=== PATIENT | female | born 1970 | race Two or more races ===

== ENCOUNTER 2021-09-07 00:24 | Emergency (ER) | payer OTHER, SELFPAY ==
--- NOTE | ~2021-09-07 | XR_ITS ---
EXAMINATION: XR KNEE, RIGHT CLINICAL INFORMATION: Knee pain COMPARISON: None TECHNIQUE: Four views of the right knee. FINDINGS: No fracture or subluxation. Compartmental joint spaces are maintained. No joint effusion. The soft tissues are unremarkable. XR/XR knee RT 3V IMPRESSION: Normal right knee.
[2021-09-07 00:41] VITALS: BP 144/78; PULSE 63; RESP 16; TEMP 36.6; O2SAT 98; BMI 39.5
--- NOTE | 2021-09-07 01:12 | ED.LOWEXIN ---
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 Subsequently had pain to the right knee. Patient denies any systemic complaints. No calf swelling. No chest pain or shortness breath no dizziness. Pain worse with ambulation. Patient had meniscal injury years back. Requiring additional surgery. Worry about her knee. Related Data Allergies Allergy/AdvReac Type Severity Reaction Status Date / Time Influenza Virus Vaccines Allergy Unknown Verified 09/07/21 00:44 nitrofurantoin Allergy Unknown Verified 09/07/21 00:44 [From Macrobid] sulfamethoxazole Allergy Unknown Verified 09/07/21 00:44 [From Bactrim] trimethoprim [From Bactrim] Allergy Unknown Verified 09/07/21 00:44 Review of Systems Review of Systems: No fever no chills no chest pain or shortness breath no nausea no vomiting Yes all other systems are reviewed and are negative [facility] Past Medical History Attestation statement: The following information was validated with the patient. Social History Social History Advance Directives: No Physical Exam Vital Signs: Vital Signs: Last Vital Signs Temp 97.8 F 09/07/21 00:41 Pulse 63 09/07/21 00:41 Resp 16 09/07/21 00:41 BP 144/78 H 09/07/21 00:41 Pulse Ox 98 09/07/21 00:41 O2 Del Method 09/07/21 00:41 BMI result Body Mass Index 39.5 Appearance: Alert. Oriented X3. No acute distress. Eyes: Pupils equal, round and reactive to light. ENT: Pharynx normal. Neck: Normal inspection. Neck supple. No lymph nodes noted. No crepitus CVS: Normal heart rate and rhythm. Pulses normal. Normal S1 and S2 Respiratory: No respiratory distress. Breath sounds normal. No Wheezing. No rales Abdomen: Soft and nontender. No rigidity. No distention. good BS x4 Skin: Skin warm and dry. Normal skin color. Normal skin turgor. Extremities: No lower extremity edema. Neurovascular intact to all extremities. No Lacerations. No Rash. There is mild pain on the medial aspect of the knee. There is no patellar tenderness on palpation. There is no tenderness on palpation medial lateral collateral ligament. Range of motions slightly limited secondary to pain. Distally neurovascularly intact Neuro: Oriented X 3. No motor deficit. No sensory deficit. Moving all extermities. No slurred speech MDM - Extremity Injury (Lower) MDM Narrative Medical decision making narrative: Patient well appearing no distress. Will get x-ray to rule out the possibility fracture. Will have patient follow-up with Employee Health and also with orthopedics for further management. Patient wanted an MRI for further delineation of the injury. An MRI form was filled out for patient for outpatient MRI X-ray showed no acute fracture. Medical Records Attestation: I reviewed the patient's medical records. Lab Data Attestation: I reviewed the patient's lab results. Discharge Plan Discharge Clinical Impression: Acute internal derangement of knee Patient Disposition: Home, Self-Care Instructions: Knee Pain (ED) Referrals: [facility] [Provider Group] Roni Goddard MD [Physician] -
== END 2021-09-07 02:10 | disposition home or self-care (01) ==
PROVIDERS: Emergency Provider Emergency Medicine Emergency Medical Services; PCP Physician Assistant Medical
DX: M23.8X1 Other internal derangements of right knee (principal)
CPT/HCPCS: 73562; 99283

== ENCOUNTER → 2021-09-09 10:54 | Outpatient (BNVA) | payer OTHER, SELFPAY | PROVIDERS: PCP Physician Assistant Medical; Visit Provider Physician Assistant Medical | DX: Z13.89 Encounter for screening for other disorder (principal) | CPT/HCPCS: 99204 ==

== ENCOUNTER → 2021-09-16 10:43 | Outpatient (BNVA) | payer OTHER, SELFPAY | PROVIDERS: PCP Physician Assistant Medical; Visit Provider Physician Assistant | DX: Z13.89 Encounter for screening for other disorder (principal) | CPT/HCPCS: 99213 ==

== ENCOUNTER 2021-09-23 14:00 | Outpatient (RCR) | payer OTHER, SELFPAY ==
--- NOTE | 2021-09-16 09:41 | MHC.PT.EP ---
[facility] [place] Office [place] Office [place] Office [address] Jalyn Schaffer [address] [phone] F: [phone] F: [phone] F: [phone] F: [phone] Physical Therapy Plan of Care Date of Evaluation: Date of Surgery: n/a Diagnosis: R knee pain Assessment: Patient is a 51 year old female presenting to PT with complaints of pain in her R knee. Pt reports onset of pain began 09/05/2021 due to lifting when transferring a pt. She presents today with impairments in pain, R knee ROM, knee strength, hip strength. 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 Clinical presentation today is most consistent with signs and sx associated with R knee pain and pt will benefit from skilled PT to address the following problems and impairments noted upon evaluation: pain, R knee ROM, knee strength, hip strength. These problems limit the patient with the following functional activities: ambulation, stair negotiation, work, squatting, ADLs. The prescribed treatment plan of care is medically necessary. Co-morbidities of HTN were identified and taken into considerations of plan of care. Pt was educated on HEP, role of PT, prognosis, POC. Frequency and Duration: The patient will be seen 2 x week x 4 weeks Short Term Goals: Pt will demonstrate full knee ROM on R to 125 in 2 weeks. Pt will demonstrate improved knee MMT strength to 5/5 in 2 weeks. Pt will demonstrate improved hip MMT by 1/3 grade in 2 weeks for improved lumbopelvic stability. Medical Coordinator Pesticide Use Goals: Pt will demonstrate improved LEFI score by 9 points in 4 weeks for improved functional mobility. 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 Pt will demonstrate ability to negotiate stairs with min to no pain in 4 weeks for return to PLOF. Treatment Plan: Modalities to reduce pain, spasms and effusion. Manual therapy to restore motion and function. Therapeutic exercise to improve strength and flexibility. Neuromuscular re-education for posture and balance. Therapeutic activities to return to functional activities of daily living. Electronically signed by: Lia Donald, PT, DPT, ATC Please sign and return to therapist. Thank you for your referral.
--- NOTE | 2021-11-03 10:34 | MHC.PT.DC ---
[facility] [place] Office [place] Office [place] Office [address] Jalyn Schaffer [address] [phone] F: [phone] F: [phone] F: [phone] F: [phone] Physical Therapy Discharge Report Diagnosis: R knee pain Date of Surgery: n/a Date of Evaluation: 09/16/21 Date of Discharge: 11/03/21 Treatments to Date: 3 Cancellations to Date: 1 No Shows to Date: 0 Discharge Status: Discharge Summary: Pt cancelled her last scheduled appointment. Pt has not reached out to be scheduled in >30 days. Pt to be d/c per our policy Electronically signed by: Lia Donald, PT, DPT, ATC Please sign and return to therapist. Thank you for your referral.
== END 2021-11-03 10:34 | disposition home or self-care (01) ==
LOC: HO.PTCHIC 14:00
PROVIDERS: PCP Physician Assistant Medical; Visit Provider Physician Assistant
DX: M25.561 Pain in right knee (principal)
CPT/HCPCS: 97110; 97140; 97161

== ENCOUNTER 2021-09-24 08:10 | Outpatient (REF) | payer OTHER, SELFPAY ==
--- NOTE | ~2021-09-24 | MR_ITS ---
EXAMINATION: MR KNEE WITHOUT CONTRAST, RIGHT CLINICAL INFORMATION: Lateral joint pain. Patient reports pain, history of torn medial meniscus. Patient reports no prior right knee surgery. COMPARISON: X-ray 09/07/2021. MRI 02/05/2020 TECHNIQUE: MRI of the knee without contrast was performed using routine sequences on a high-field scanner. FINDINGS: MENISCI: Medial Meniscus: Minimal focal undersurface and free edge fraying of the posterior root. Meniscus otherwise appears intact. Lateral Meniscus: Superior and undersurface degenerative fraying/tear of the posterior root/central posterior horn, involving a segment approximately 1.1 cm transverse. LIGAMENTS: Cruciate: Mild T2 signal in the ACL, which could reflect myxoid degeneration or sprain. PCL is intact. Collateral: Intact EXTENSOR MECHANISM: Intact ARTICULAR CARTILAGE/BONE: Patellofemoral Compartment: Focal subchondral edema in the lateral patellar facet. No focal cartilage loss. Medial Compartment: No significant cartilage loss. Degenerative edema underlying the tibial spines. Lateral Compartment: No significant cartilage loss. Redemonstrated is a lobulated heterogeneous intramedullary lesion in the femur measuring 2.1 x 1.4 x 2 cm. There are foci of internal fat. No surrounding marrow edema. Findings are consistent with a low-grade chondroid lesion such as enchondroma. JOINT FLUID AND BURSAE: Small effusion. No significant Leon's cyst. MR/MR knee RT wo con IMPRESSION: 1. Degenerative fraying/tear of the posterior root/central posterior horn of the lateral meniscus involving a segment approximately 1.1 cm transverse. 2. Mild fraying of the posterior root of the medial meniscus. 3. ACL findings could reflect myxoid degeneration or sprain. 4. Stable probable enchondroma in the distal femur. 5. Small effusion.
== END 2021-09-24 08:11 | disposition home or self-care (01) ==
LOC: HO.MRI 08:10
PROVIDERS: Visit Provider Physician Assistant
DX: M25.561 Pain in right knee (principal)
CPT/HCPCS: 73721

== ENCOUNTER → 2022-01-20 09:16 | Outpatient (BNVA) | payer OTHER, SELFPAY | PROVIDERS: PCP Physician Assistant Medical; Visit Provider Physician Assistant | DX: Z13.89 Encounter for screening for other disorder (principal) | CPT/HCPCS: 99213 ==

== ENCOUNTER 2022-08-04 08:04 | Outpatient (REF) | payer OTHER, SELFPAY ==
--- NOTE | ~2022-08-04 | XR_ITS ---
EXAMINATION: XR KNEE AP STANDING CLINICAL INFORMATION: Right knee pain. COMPARISON: Radiographs dated 09/07/2021. TECHNIQUE: AP bilateral standing view of the knees was obtained. FINDINGS: Bones and soft tissues are normal. No fracture or joint effusion. Alignment is anatomic. Joint spaces are well maintained. No abnormal soft tissue calcification. XR/XR knee standing BI IMPRESSION: Normal knees.
== END 2022-08-04 08:05 | disposition home or self-care (01) ==
LOC: HO.HOSX 08:04
PROVIDERS: Visit Provider Physician Assistant
DX: M17.11 Unilateral primary osteoarthritis, right knee (principal); M25.562 Pain in left knee
CPT/HCPCS: 73565; 99202